=== PATIENT | male | born 1985 | race Caucasian/White ===

== ENCOUNTER 2018-05-08 16:39 | Emergency (ER) | payer SELFPAY ==
[2018-05-08 17:23] LABS: Absolute Lymphocytes (CBC) 1.6 K/uL (0.7-4.9); Absolute Monocytes 0.9 K/uL (0.1-1.3); Absolute Neutrophil 11.1 K/uL (1.8-8.0); Basophils % 0.2 % (0-1.3); Eosinophils % 0.5 % (0-4.4); Hematocrit 47.2 % (39.6-49.0); Lymphocytes % 11.7 % (15.3-44.8); MCH 33.7 pg (27.0-35.0); MCV 96.6 fL (80-100); MPV 9.9 fL (7.6-11.3); Monocytes % 6.3 % (3.3-12.3); RBC Red Blood Cell Count 4.88 M/uL (4.33-5.43)
--- NOTE | 2018-05-08 17:31 | RAD REPORT ---
EXAM DESCRIPTION: CT - Stone Protocol - 05/08/2018 5:21 pm CLINICAL HISTORY: Flank pain. FLANK PAIN COMPARISON: No comparisons TECHNIQUE: Axial images were obtained without oral or IV contrast. Lack of contrast limits solid org an and vascular assessment. The [id number] spans the entirety of the system partially obscuring uppermost abdomen and lung bases. Coronal reformatted images were obtained and reviewed. All CT scans are performed using dose optimization technique as appropriate and may include automated exposure control or mA/KV adjustment according to patient size. FINDINGS: The lower lung allred are clear. Imaged portions of the liver and spleen show no suspicious findings on non-contrast imaging. The panc reas and adrenal glands are normal. No pathologic lymphadenopathy in the abdomen or pelvis. A 5 mm calculus (830 HU) is present in the mid left ureter at the level of the L4 vertebral body. Add itional 2 mm calculus is present in the distal left ureter the level of the pelvic inlet. More caudal ly, just distal to crossing the left iliac artery, an additional 2 mm calculus is present in the left ureter. The findings result in mild hydronephrosis on the left. Additional bilateral small caliceal stones are present bilaterally, the largest on the left measuring 3 mm in the upper pole and the larg est on the right measuring 2 mm in the upper pole. No bowel obstruction, free air, free fluid or abscess. Normal appendix noted. No significant bony abnormality. IMPRESSION: Three stones are present in the left ureter, the largest and most superiorly located of which measures 5 mm in the mid ureter. Mild left hydronephrosis. Additional bilateral nephrolithiasis is present.
[2018-05-08 17:49] LABS: Albumin 4.5 g/dL (3.4-5.0); Bilirubin Direct 0.1 mg/dL (0-0.2); Bilirubin Total 0.4 mg/dL (0.2-1.0); Potassium 3.7 mmol/L (3.5-5.1); Protein, Total 8.6 g/dL (6.4-8.2)
[2018-05-08] MEDS ORDERED: TAMSULOSIN 0.4 MG SR CAP ONE (18:04)
[2018-05-08] MEDS ORDERED: NA CHLORIDE 0.9% 1,000 ML ONE (18:04)
[2018-05-08] MEDS ORDERED: KETOROLAC 30 MG/ML INJ ONE (18:04)
[2018-05-08 18:36] LABS: Urine Blood 3+ (NEG); Urine Glucose NEGATIVE (NEG); Urine Protein 1+ (NEG); Urine pH 6.5 (5.0-7.0)
[2018-05-08 18:39] LABS: Urine Bacteria <20 /HPF (NONE SEEN); Urine Culture Reflex Order REFLEXED; Urine RBC TNTC /HPF (NONE SEEN)
--- NOTE | 2018-05-08 18:46 | EDPHYS ---
Physician Documentation [facility] Name: Milan Lira Age: 33 yrs Sex: Male : 1985 Arrival Date: 05/08/2018 Time: 16:41 Bed 15 Private MD: Silvano Rodriguez T ED Physician Juan Jerome HPI: 05/08 17:30 This 33 yrs old Male presents to ER via Ambulatory with complaints of Flank pm1 Pain. 17:30 The patient complains of pain in the left low back and left lower quadrant. Onset: The pm1 symptoms/episode began/occurred this morning. Modifying factors: The symptoms are alleviated by nothing. the symptoms are aggravated by nothing. Associated signs and symptoms: Pertinent positives: nausea, Pertinent negatives: diarrhea, fever, hematuria, vomiting. Severity of pain: in the emergency department the pain has improved markedly. The patient has not experienced similar symptoms in the past. The patient has not recently seen a physician. Historical: - Allergies: 16:56 No Known Allergies; sg - Home Meds: 16:56 Adderall XR Oral [Active]; sg - PMHx: 16:56 ADD/ADHD; sg - PSHx: 16:56 Hydrocele; sg - Immunization history:: Adult Immunizations not up to date. - Social history:: Smoking status: Patient uses tobacco products, 8-10 cigs per day. - Ebola Screening: : Patient negative for fever greater than or equal to 101.5 degrees Fahrenheit, and additional compatible Ebola Virus Disease symptoms Patient denies exposure to infectious person Patient denies travel to an Ebola-affected area in the 21 days before illness onset No symptoms or risks identified at this time. ROS: 17:30 Constitutional: Negative for fever, chills, and weight loss, Eyes: Negative for injury, pm1 pain, redness, and discharge, ENT: Negative for injury, pain, and discharge, Neck: Negative for injury, pain, and swelling, Cardiovascular: Negative for chest pain, palpitations, and edema, Respiratory: Negative for shortness of breath, cough, wheezing, and pleuritic chest pain. 17:30 : Negative for injury, bleeding, discharge, and swelling, MS/Extremity: Negative for injury and deformity, Skin: Negative for injury, rash, and discoloration, Neuro: Negative for headache, weakness, numbness, tingling, and seizure. 17:30 Abdomen/GI: Positive for abdominal pain, nausea, of the left lower quadrant, Negative for vomiting, diarrhea. 17:30 Back: Positive for flank pain, on the left. Exam: 17:30 Constitutional: This is a well developed, well nourished patient who is awake, alert, pm1 and in no acute distress. Head/Face: Normocephalic, atraumatic. Chest/axilla: Normal chest wall appearance and motion. Nontender with no deformity. No lesions are appreciated. Cardiovascular: Regular rate and rhythm with a normal S1 and S2. No gallops, murmurs, or rubs. Normal PMI, no JVD. No pulse deficits. Respiratory: Lungs have equal breath sounds bilaterally, clear to auscultation and percussion. No rales, rhonchi or wheezes noted. No increased work of breathing, no retractions or nasal flaring. 17:30 Back: No spinal tenderness. No costovertebral tenderness. Full range of motion. Skin: Warm, dry with normal turgor. Normal color with no rashes, no lesions, and no evidence of cellulitis. MS/ Extremity: Pulses equal, no cyanosis. Neurovascular intact. Full, normal range of motion. 17:30 Abdomen/GI: Inspection: abdomen appears normal, Bowel sounds: normal, Palpation: abdomen is soft and non-tender, mass, is not appreciated, rebound tenderness, is not appreciated. 17:30 Neuro: Orientation: is normal, Motor: is normal. Vital Signs: 16:55 BP 142 / 95; Pulse 94; Resp 14; Temp 98.2(TE); Pulse Ox 99% on R/A; Weight 71.67 kg; sg Height 5 ft. 6 in. (167.64 cm) (R); Pain 8/10; 18:27 BP 132 / 87; Pulse 87; Resp 18; Pulse Ox 99% on R/A; Pain 5/10; ph 16:55 Body Mass Index 25.50 (71.67 kg, 167.64 cm) sg MDM: 16:59 Patient medically screened. jami 18:40 ED course: Patient without any pain, vomiting, and stones less than 5 mm. Will pm1 discharge patient home for follow up with urology. 18:42 Data reviewed: vital signs. Data interpreted: Pulse oximetry: on room air is 99 %. pm1 Interpretation: normal. Counseling: I had a detailed discussion with the patient and/or guardian regarding: the historical points, exam findings, and any diagnostic results supporting the discharge/admit diagnosis, lab results, radiology results, the need for outpatient follow up, for definitive care, a urologist, to return to the emergency department if symptoms worsen or persist or if there are any questions or concerns that arise at home. 05/08 17:09 Order name: Basic Metabolic Panel; Complete Time: 17:51 pm1 05/08 17:09 Order name: CBC with Diff; Complete Time: 17:51 pm1 05/08 17:09 Order name: Hepatic Function; Complete Time: 17:51 pm1 05/08 17:09 Order name: Lipase; Complete Time: 17:51 pm1 05/08 17:09 Order name: Urine Microscopic Only; Complete Time: 18:42 pm1 05/08 17:10 Order name: Urine Dipstick--Ancillary (enter results); Complete Time: 18:42 eb 05/08 17:09 Order name: IV Saline Lock; Complete Time: 17:11 pm1 05/08 17:09 Order name: Labs collected and sent; Complete Time: 17:11 pm1 05/08 17:09 Order name: CT Stone Protocol; Complete Time: 17:51 pm1 05/08 18:41 Order name: Urine Culture [facility] 05/08 17:09 Order name: Urine Dipstick-Ancillary (obtain specimen); Complete Time: 17:11 pm1 Administered Medications: 18:08 Drug: Flomax 0.4 mg Route: PO; ss 18:49 Follow up: Response: No adverse reaction ph 18:09 Drug: NS 0.9% 1000 ml Route: IV; Rate: 1000 ml; Site: right antecubital; ss 18:49 Follow up: Response: No adverse reaction; IV Status: Completed infusion ph 18:09 Drug: TORadol 30 mg Route: IVP; Site: right antecubital; ss 18:49 Follow up: Response: No adverse reaction; Pain is decreased ph 19:00 Drug: Cipro 500 mg Route: PO; bp 19:11 Follow up: Response: Medication administered at discharge. bp Disposition: 05/09 06:47 Co-signature as Attending Physician, Juan Jerome MD I agree with the assessment and jami plan of care. Disposition: 05/08/18 18:45 Discharged to Home. Impression: Calculus of kidney with calculus of ureter. - Condition is Stable. - Discharge Instructions: Kidney Stones, Dietary Guidelines to Help Prevent Kidney Stones. - Prescriptions for Tylenol- Codeine #3 300-30 mg Oral Tablet - take 2 tablets by ORAL route every 6 hours As needed; 20 tablet. Zofran 4 mg Oral Tablet - take 1 tablet by ORAL route every 8 hours As needed; 20 tablet. Flomax 0.4 mg Oral Capsule, Sust. Release 24 hr - take 1 capsule by ORAL route once daily 1/2 hour following the same meal each day; 30 capsule. Cipro 500 mg Oral Tablet - take 1 tablet by ORAL route every 12 hours for 7 days; 14 tablet. - Work release form, Medication Reconciliation Form, Thank You Letter, Antibiotic Education, Prescription Opioid Use form. - Follow up: Emergency Department; When: As needed; Reason: Worsening of condition. Follow up: Ammy Champion MD; When: 2 - 3 days; Reason: Recheck today's complaints, Continuance of care, Re-evaluation by your physician. - Problem is new. - Symptoms have improved. Signatures: Dispatcher [employer] EDMS Herrera Hatfield RN RN Juan Hdz MD MD cha Smirch, Shelby, RN RN ss Constantine Casarez NP MINUTE CLERK [employer] pm1 Jimbo Berg RN RN bp Dariana Mcgraw RN ph Corrections: (The following items were deleted from the chart) 05/08 19:16 18:45 05/08/2018 18:45 Discharged to Home. Impression: Calculus of kidney with calculus bp of ureter. Condition is Stable. Forms are Medication Reconciliation Form, Thank You Letter, Antibiotic Education, Prescription Opioid Use. Follow up: Emergency Department; When: As needed; Reason: Worsening of condition. Follow up: Ammy Champion; When: 2 - 3 days; Reason: Recheck today's complaints, Continuance of care, Re-evaluation by your physician. Problem is new. Symptoms have improved. pm1
--- NOTE | 2018-05-08 18:46 | ER ---
Nurse's Notes [facility] Name: Milan Lira Age: 33 yrs Sex: Male : 1985 Arrival Date: 05/08/2018 Time: 16:41 Bed 15 Private MD: Silvano Rodriguez T Diagnosis: Calculus of kidney with calculus of ureter Presentation: 05/08 16:53 Presenting complaint: Patient states: Left flank pain, radiating to left upper and left sg lower quadrant, reports nausea, denies V/D/Fever, denies kidney stones reports having a hydrocele sx. Transition of care: patient was not received from another setting of care. Onset of symptoms was May 08, 2018. Risk Assessment: Do you want to hurt yourself or someone else? Patient reports no desire to harm self or others. Initial Sepsis Screen: Does the patient meet any 2 criteria? No. Patient's initial sepsis screen is negative. Does the patient have a suspected source of infection? No. Patient's initial sepsis screen is negative. Care prior to arrival: None. 16:53 Method Of Arrival: Ambulatory sg 16:53 Acuity: GEORGINA 3 sg Historical: - Allergies: 16:56 No Known Allergies; sg - Home Meds: 16:56 Adderall XR Oral [Active]; sg - PMHx: 16:56 ADD/ADHD; sg - PSHx: 16:56 Hydrocele; sg - Immunization history:: Adult Immunizations not up to date. - Social history:: Smoking status: Patient uses tobacco products, 8-10 cigs per day. - Ebola Screening: : Patient negative for fever greater than or equal to 101.5 degrees Fahrenheit, and additional compatible Ebola Virus Disease symptoms Patient denies exposure to infectious person Patient denies travel to an Ebola-affected area in the 21 days before illness onset No symptoms or risks identified at this time. Screenin:28 Abuse screen: Denies threats or abuse. Denies injuries from another. Nutritional ph screening: No deficits noted. Tuberculosis screening: No symptoms or risk factors identified. Fall Risk None identified. Assessment: 17:00 General: Appears in no apparent distress. uncomfortable, slender, Behavior is calm, ph cooperative, appropriate for age, Denies fever. Pain: Complains of pain in anterior aspect of left lateral abdomen and posterior aspect of left lateral abdomen Pain radiates to left upper quadrant and left lower quadrant. Neuro: Level of Consciousness is awake, alert, obeys commands, Oriented to person, place, time, situation. Cardiovascular: Capillary refill is > 3 seconds Patient's skin is warm and dry. Respiratory: Airway is patent Respiratory effort is even, unlabored. GI: Reports nausea, Patient currently denies diarrhea, vomiting. : Reports pain in left flank(s), upper quadrant(s) lower quadrant(s) Denies burning with urination, inability to void. Derm: Skin is intact, is healthy with good turgor, Skin is pink, warm \T\ dry. Musculoskeletal: Circulation, motion, and sensation intact. Range of motion: intact in all extremities. 18:27 Reassessment: Patient appears in no apparent distress at this time. Patient and/or ph family updated on plan of care and expected duration. Pain level reassessed. Patient is alert, oriented x 3, equal unlabored respirations, skin warm/dry/pink. Pt resting quietly, VSS, will continue to monitor. 19:10 Reassessment: PT D/C HOME AMBULATORY WITH FAMILY, DX WITH RENAL CALCULUS. bp Vital Signs: 16:55 BP 142 / 95; Pulse 94; Resp 14; Temp 98.2(TE); Pulse Ox 99% on R/A; Weight 71.67 kg; sg Height 5 ft. 6 in. (167.64 cm) (R); Pain 8/10; 18:27 BP 132 / 87; Pulse 87; Resp 18; Pulse Ox 99% on R/A; Pain 5/10; ph 16:55 Body Mass Index 25.50 (71.67 kg, 167.64 cm) ED Course: 16:41 Patient arrived in ED. sb2 16:41 Silvano Rodriguez MD is Private Physician. sb2 16:55 Triage completed. sg 16:56 Arm band placed on. sg 16:58 Constantine Casarez NP [facility]. pm1 16:58 Juan Jerome MD is Attending Physician. pm1 17:00 Urine collected: clean catch specimen, cloudy, sdaiq colored. [facility] 17:03 Initial lab(s) drawn, by ri, sent to lab. Inserted saline lock: 20 gauge in right 3 antecubital area, using aseptic technique. Blood collected. 17:[address] via wheelchair. sj 17:15 Dariana Mcgraw, RN is Primary Nurse. ph 17:21 CT completed. Patient tolerated procedure well. Patient moved back from SC. ut 17:21 CT Stone Protocol In Process Unspecified. EDMS 18:28 Patient has correct armband on for positive identification. Bed in low position. Call ph light in reach. Side rails up X 1. Pulse ox on. NIBP on. Warm blanket given. 18:43 Ammy Champion MD is Referral Physician. pm1 19:11 No provider procedures requiring assistance completed. IV discontinued, intact, bp bleeding controlled, No redness/swelling at site. Pressure dressing applied. Administered Medications: 18:08 Drug: Flomax 0.4 mg Route: PO; ss 18:49 Follow up: Response: No adverse reaction ph 18:09 Drug: NS 0.9% 1000 ml Route: IV; Rate: 1000 ml; Site: right antecubital; ss 18:49 Follow up: Response: No adverse reaction; IV Status: Completed infusion ph 18:09 Drug: TORadol 30 mg Route: IVP; Site: right antecubital; ss 18:49 Follow up: Response: No adverse reaction; Pain is decreased ph 19:00 Drug: Cipro 500 mg Route: PO; bp 19:11 Follow up: Response: Medication administered at discharge. bp Outcome: 18:45 Discharge ordered by . pm1 19:12 Discharged to home ambulatory, with family. bp 19:12 Condition: stable 19:12 Discharge instructions given to patient, Instructed on discharge instructions, follow up and referral plans. medication usage, Demonstrated understanding of instructions, follow-up care, medications, Prescriptions given X 4. 19:16 Patient left the ED. bp Addendum: 05/12/2018 08:10 Addendum: Culture Results: Positive urine culture. No further action required. Bacteria i w sensitive to prescribed antibiotic. Signatures: Dispatcher [employer] EDMS Herrera Hatfield, RN Hortencia Abbasi Irene, RN RN Yakelin Contreras RN RN Dariana Mcgraw, ELSIE ZIMMERMAN Constantine Casarez, KITCHEN STEWARDESS KITCHEN STEWARDESS pm1 Manny Chiang Deanna 3 Jimbo Berg RN RN Thais Funes 2
[2018-05-08] MEDS ORDERED: CIPROFLOXACIN HCL 500 MG TAB ONE (19:05)
== END 2018-05-08 19:16 | disposition home or self-care (01) ==
LOC: ER 16:39
DX: N20.2 Calculus of kidney with calculus of ureter (principal); F90.9 Attention-deficit hyperactivity disorder, unspecified type; F17.210 Nicotine dependence, cigarettes, uncomplicated
CPT/HCPCS: 36415; 74176; 76377; 80048; 80076; 81003; 81015; 83690; 85025; 87077; 87086; 87088; 87186; 96361; 96374; 99284; J7030